=== PATIENT | male | born 2005 | race Caucasian/White ===

== ENCOUNTER → 2024-02-21 09:01 | Outpatient (CLI) | payer OTHER, MEDICAID, SELFPAY ==
[2024-02-21 20:00] LABS: Influenza A - CEPHEID Flu A NEGATIVE (NEGATIVE); Influenza B - CEPHEID Flu B NEGATIVE (NEGATIVE); Respiratory Syncytial Virus Negative (Negative)
[2024-02-21 20:22] LABS: COVID-19 CEPHEID 4-PLEX PCR POSITIVE (Negative)
== END ==
PROVIDERS: PCP Pediatrics; Visit Provider Physician Assistant Medical
DX: J01.00 Acute maxillary sinusitis, unspecified (principal)
CPT/HCPCS: 87635; 87400; 87420; 0241U